=== PATIENT | female | born 1965 | race Caucasian/White ===

== ENCOUNTER → 2017-01-08 | Outpatient (CLI) | payer OTHER | LOC: BMCIMAGING 13:55 | PROVIDERS: ATTEND Emergency Medicine | DX: S92.534A Nondisplaced fracture of distal phalanx of right lesser toe(s), initial encounter for closed fracture (principal) ==

== ENCOUNTER → 2017-01-21 | Outpatient (CLI) | payer OTHER | LOC: FIMAGING 15:15 | PROVIDERS: ATTEND Family Medicine | DX: Z12.31 Encounter for screening mammogram for malignant neoplasm of breast (principal) | CPT/HCPCS: G0202 ==